=== PATIENT | female | born 1980 | race Asian ===

== ENCOUNTER 2022-03-21 20:38 | Emergency (ER) | payer OTHER, MEDICAID, SELFPAY ==
[2022-03-21 20:59] VITALS: BP 144/91; PULSE 94; RESP 18; TEMP 36.1; O2SAT 97; BMI 19.8
== END 2022-03-21 22:01 | disposition left against medical advice (07) ==
PROVIDERS: Emergency Provider Emergency Medicine
CPT/HCPCS: 99281

== ENCOUNTER 2022-07-21 11:34 | Emergency (ER) | payer OTHER, MEDICAID, SELFPAY ==
[2022-07-21 11:37] VITALS: BP 96/59; PULSE 58; RESP 15; TEMP 36.6; O2SAT 100; BMI 19.3
--- NOTE | 2022-07-21 11:56 | PC.NURSE ---
Pt c/o fever x 3 days.
[2022-07-21 12:05] LABS: COVID19 -Nasal RAPID POSITIVE (Negative)
--- NOTE | 2022-07-21 12:41 | ED_ITS ---
HPI - Fever <JAYCOB Mckeon - Last Filed: 07/21/22 12:44> General Chief Complaint: Fever Stated Complaint: Fever 102, body aches, lethargic Time Seen by Provider: 07/21/22 11:56 Source: patient Mode of arrival: Wheelchair History of Present Illness HPI Narrative: This is a 41-year-old female presents emergency department complaining of fever for the last 2 days, body aches, congestion, sore throat with a mild cough. She states she took a COVID test yesterday and the day before and it was negative. She states her symptoms started 3 days ago and she feels unwell. She denies any nausea, vomiting, or diarrhea. She endorses having chills, denies any dysuria, flank pain, abdominal pain or chest pain. She denies any shortness of breath or wheezing, states she has a history of asthma but denies any need for her inhaler. She states that she has low energy but otherwise has been tolerating fluids and eating food. She states that she had a tooth pulled 2 weeks ago, was not sure if she was getting an infection or not but denies any significant or worsening dental pain. Related Data Previous Rx's Medication Instructions Recorded benzocaine 15 mg-menthol 3.6 mg 1 king mucous membrane Q2H PRN sore 07/21/22 lozenges (Cepacol Sore Throat throat #16 ea (benzocaine-menthol)) cetirizine 10 mg tablet 10 mg PO BEDTIME PRN congestion 07/21/22 #20 tabs Allergies Allergy/AdvReac Type Severity Reaction Status Date / Time No Known Drug Allergies Allergy Verified 07/21/22 11:39 Review of Systems <JAYCOB Mckeon - Last Filed: 07/21/22 12:44> Review of Systems Narrative: Review of systems is negative for acute abnormalities unless otherwise noted in HPI Patient History <JAYCOB Mckeon - Last Filed: 07/21/22 12:44> Social History Smoking Status: Never smoker Smoking Status: Never smoker alcohol intake frequency: holidays/special occasions only Substance Use Type: marijuana Exam <JAYCOB Mckeon - Last Filed: 07/21/22 12:44> Narrative Exam Narrative: Reviewed vitals signs and nursing notes. General: cooperative, in no acute distress, well groomed, appears uncomfortable but is nontoxic appearing HEENT: symmetrical facial expressions, moist mucous membranes Cardiovascular: regular rate and rhythm, no peripheral edema, warm extremities Respiratory: normal effort, able to speak in complete sentences, without wheezing, stridor, or abnormal breath sounds. No retractions or tachypnea. GI: abdomen soft, nontender to palpation, nondistended, without masses, rebound tenderness or exquisite tenderness with exam. MSK: moves all extremities, neurovascularly intact, no weakness, normal tone Skin: brisk capillary refill, without pallor or erythema Neuro: normal speech and cognition, A&O x3, ambulatory, clear speech Psych: mental status is grossly normal, congruent mood, normal affect, pleasant and cooperative Initial Vital Signs Initial Vital Signs: Vital Signs Temperature 97.8 F 07/21/22 11:37 Pulse Rate 58 L 07/21/22 11:37 Respiratory Rate 15 07/21/22 11:37 Blood Pressure 96/59 L 07/21/22 11:37 Pulse Oximetry 100 07/21/22 11:37 Oxygen Delivery Method 07/21/22 11:37 <Brandon Rolon MD - Last Filed: 07/21/22 18:26> Initial Vital Signs Initial Vital Signs: Vital Signs Temperature 97.8 F 07/21/22 11:37 Pulse Rate 58 L 07/21/22 11:37 Respiratory Rate 15 07/21/22 11:37 Blood Pressure 96/59 L 07/21/22 11:37 Pulse Oximetry 100 07/21/22 11:37 Oxygen Delivery Method 07/21/22 11:37 Course <JAYCOB Mckeon - Last Filed: 07/21/22 12:44> Orders Ordered: ED Orders 07/21/22 11:44 COVID19 -Nasal RAPID/Pre-Proc Stat Discontinued Medications Acetaminophen (Acetaminophen 325 Mg Tablet) 600 mg PO NOW ONE Stop: 07/21/22 12:37 Last Admin: 07/21/22 12:46 Dose: 600 mg Documented By: EVELIO Ketorolac Tromethamine (Ketorolac 10 Mg Tablet) 10 mg PO NOW ONE Stop: 07/21/22 12:37 Last Admin: 07/21/22 12:46 Dose: 10 mg Documented By: EVELIO Vital Signs Vital signs: Vital Signs - 8 hr 07/21/22 11:37 07/21/22 12:48 07/21/22 12:51 Temperature 97.8 F 98.0 F Pulse Rate 58 L 64 65 Respiratory Rate 15 16 18 Blood Pressure 96/59 L 95/55 L 100/57 L Pulse Oximetry 100 99 97 Oxygen Delivery Method Room Air Room Air Room Air <Brandon Rolon MD - Last Filed: 07/21/22 18:26> Orders Ordered: ED Orders 07/21/22 11:44 COVID19 -Nasal RAPID/Pre-Proc Stat Discontinued Medications Acetaminophen (Acetaminophen 325 Mg Tablet) 600 mg PO NOW ONE Stop: 07/21/22 12:37 Last Admin: 07/21/22 12:46 Dose: 600 mg Documented By: EVELIO Ketorolac Tromethamine (Ketorolac 10 Mg Tablet) 10 mg PO NOW ONE Stop: 07/21/22 12:37 Last Admin: 07/21/22 12:46 Dose: 10 mg Documented By: EVELIO Vital Signs Vital signs: Vital Signs - 8 hr 07/21/22 11:37 07/21/22 12:48 07/21/22 12:51 Temperature 97.8 F 98.0 F Pulse Rate 58 L 64 65 Respiratory Rate 15 16 18 Blood Pressure 96/59 L 95/55 L 100/57 L Pulse Oximetry 100 99 97 Oxygen Delivery Method Room Air Room Air Room Air MDM - Fever <JAYCOB Mckeon - Last Filed: 07/21/22 12:44> Lab Data Labs: Lab Results 07/21/22 Range/Units 11:44 SARS-CoV-2 (PCR) Positive H (Negative) MDM Narrative Medical decision making narrative: COVID (+) on day 3 of symptoms without hypoxia, respiratory distress, dehydration, or focal exam to suggest secondary bacterial infection. Discussed CDC guidelines for quarantine, mask wearing, physical distancing, and infection prevention measures such as frequent handwashing. Discussed supportive treatments: Tylenol/Motrin as needed for pain/fever. OTC decongestant medications and/or antihistamines for symptomatic relief. Maintain adequate fluid intake. Follow-up with PCP as directed. Return to clinic/ER instructions discussed for new, not improving, or worsening symptoms. All questions answered. <Brandon Rolon MD - Last Filed: 07/21/22 18:26> Lab Data Labs: Lab Results 07/21/22 Range/Units 11:44 SARS-CoV-2 (PCR) Positive H (Negative) Discharge Plan Departure Patient Disposition: Home Clinical Impression: COVID-19 Instructions: DI for Fever (Symptom) -- Adult, COVID-19 Activity Restrictions/Additional Instructions: *You have been diagnosed with COVID-19. Today is day 3 of your 5 quarantine or until your fever is gone per CDC recommendations. Please stay hydrated, use ibuprofen 600 mg every 6 hours with food and water or and/or Tylenol 650 mg every 6 hours for pain and fever. Please take Zyrtec each night to help with any congestion, you can use throat lozenges for sore throat and use Mucinex which is available [id number] for a productive cough. I hope you start feeling better soon, focus on hydration and keeping your fever down. *What to do: *Please continue to take your regular medications as directed. [x ] New medication prescriptions sent to your pharmacy: [[facility] ] [ ] New medication written as a paper prescription [ ] No new medications given *Please follow up with your primary care provider in 2-3 days, call for an appointment. Let them know you were seen in the Emergency Department and that we asked that you be seen for follow-up. We will electronically transmit a record of today's note if your PCP is in our system *If you do not have a primary care provider please contact [phone] to establish care with one of the [facility] primary care providers. *Return to Emergency Department if you should have any new, worsening, or concerning symptoms, such as [fever greater than 101F, chills, worsening pain, persistent vomiting or other bothersome symptoms]. Prescriptions: New Cepacol Sore Throat (romero-men) 15-3.6 mg lozenge 1 king mucous membrane Q2H PRN (Reason: sore throat) Qty: 16 0RF cetirizine 10 mg tablet 10 mg PO BEDTIME PRN (Reason: congestion) Qty: 20 0RF Visit Report Forms: Patient Portal/API <Brandon Rolon MD - Last Filed: 07/21/22 18:26> Cosign ED Attending Cosignature Attestation: I was immediately available in the department for consultation. ?This documentation has been reviewed and I agree with assessment and plan. Supervised by Brandon Rolon MD
[2022-07-21] MEDS: ACETAMINOPHEN 325 MG TABLET 600 MG PO (12:46)
[2022-07-21] MEDS: KETOROLAC 10 MG TABLET PO (12:46)
[2022-07-21 12:48] VITALS: BP 95/55; PULSE 64; RESP 16; O2SAT 99
[2022-07-21 12:51] VITALS: BP 100/57; PULSE 65; RESP 18; TEMP 36.7; O2SAT 97
== END 2022-07-21 12:52 | disposition home or self-care (01) ==
PROVIDERS: Emergency Medicine; Emergency Provider Nurse Practitioner Critical Care Medicine
DX: U07.1 COVID-19 (principal)
CPT/HCPCS: 87635; 99283; C9803

== ENCOUNTER → 2023-03-06 10:30 | Outpatient (CLI) | payer OTHER, MEDICAID, SELFPAY ==
--- NOTE | 2023-03-06 10:32 | DI.RAD.S_ITS ---
PROCEDURE: XR FINGER RT MIN 2V INDICATIONS: finger injury TECHNIQUE: AP hand, 2 views of the 4th finger(s) acquired. COMPARISON: None. FINDINGS: Bones: No fractures or dislocations. No suspicious bony lesions. Soft tissues: No suspicious soft tissue calcifications. IMPRESSION: No visualized acute fracture or dislocation. However, if clinical concern and/or pain persist, short interval imaging followup in 7-10 days is recommended, as occult injury cannot be definitively excluded. Dictated by: Carey Bird M.D. on 03/06/2023 at 16:02 Approved by: Carey Bird M.D. on 03/06/2023 at 16:03
== END ==
PROVIDERS: Referring Provider Nurse Practitioner Family; Visit Provider Nurse Practitioner Family
DX: S60.041A Contusion of right ring finger without damage to nail, initial encounter (principal); X58.XXXA Exposure to other specified factors, initial encounter
CPT/HCPCS: 73140

== ENCOUNTER 2024-01-13 01:48 | Emergency (ER) | payer SELFPAY ==
[2024-01-13 02:00] VITALS: BP 141/86; PULSE 94; RESP 17; TEMP 36.8; O2SAT 98; BMI 19.4
--- NOTE | 2024-01-13 02:05 | ED_ITS ---
HPI - Allergic Reaction General Chief complaint: Allergic Reaction Stated complaint: hives/swollen lips reaction? x2 days Time Seen by Provider: 01/13/24 01:57 Source: patient, RN notes reviewed and old records reviewed Mode of arrival: Ambulatory Limitations: no limitations History of Present Illness HPI narrative: 43-year-old female who presents with complaint of 2 days of rash that started on her forehead that has proceeded to move across her entire body and now developed swelling of her upper lip. Patient states she has not had any similar symptoms in the past. If have not history of asthma. She has not really felt tight before. Does not feel like she is tight in her tongue or her airway. She states no nausea or vomiting, no diarrhea. She states rash has been present and worsening over the past several days. She did have some GI symptoms a week ago and was started on Pepcid. Patient states she does not have any known allergies no other new medications. She did take 50 mg Benadryl prior to arrival. Patient states she has not have any known food allergies or other known new exposures. No tobacco, no regular alcohol or recreational drugs. Patient presents today as the lip swelling was new. Related Data Previous Rx's Medication Instructions Recorded albuterol sulfate 90 mcg/actuation 2 puff inhalation Q4-6H PRN 10/19/23 aerosol inhaler shortness of breath or wheezing #8.5 grams ondansetron 4 mg disintegrating 4 mg PO Q8H PRN nausea and 01/04/24 tablet vomiting #10 tabs epinephrine 0.3 mg/0.3 mL 0.3 mg (0.3 mL) IM Q5-15M PRN 01/13/24 injection, auto-injector (EpiPen) anaphylaxis #2 ea prednisone 20 mg tablet 40 mg (2 x 20 mg) PO DAILY 5 days 01/13/24 #10 tabs Allergies Allergy/AdvReac Type Severity Reaction Status Date / Time No Known Drug Allergies Allergy Verified 01/04/24 17:09 Review of Systems Review of Systems ROS Unobtainable: All systems reviewed & are unremarkable except as noted in HPI and below Patient History Medical History Chicken pox (~1979) Painful menstrual periods Irregular menstrual cycle Heavy menstrual period Asthma ADHD (~1983) Surgical History History of eye surgery Social History marital status: number of children: 0 lives independently: Yes occupational status: unemployed other: grew up in [place], family still here. Smoking Status: Never smoker Smoking Status: Never smoker alcohol intake frequency: holidays/special occasions only Substance Use Type: marijuana Exam Narrative Exam Narrative: GEN: well nourished, well appearing female, alert and oriented x 3, patient appears to be in mild distress. HEENT: Atraumatic, pupils are equal round reactive to light, extraocular movements are intact, nares are clear, there is no conjunctival pallor. Throat is clear without any exudates, erythema, tonsillar enlargement or uvular deviation, patient has swelling of upper lip, no tongue or inner oropharyngeal involvement appreciated, HEART: Regular rate and rhythm without murmur, clicks, rubs. Pulses are equal in upper and lower extremities LUNGS:Lungs clear to auscultation, no wheezes, rales, crackles, chest moves symmetrically ABD:bowel sounds normal, soft, non-tender, no guarding, rebound, rigidity, no masses noted, no hepatosplenomegaly :No CVA tenderness MSCL: Non-tender, no muscle atrophy, muscles strength 5/5 upper and lower extremities, full range of motion, normal gait NEURO:CN 2-12 intact, sensation normal SKIN: Patient has erythematous raised wheals in various sizes from head to toe, no obvious mucosal involvement no blisters. Initial Vital Signs Initial Vital Signs: Vital Signs Temperature 98.2 F 01/13/24 02:00 Pulse Rate 94 H 01/13/24 02:00 Respiratory Rate 17 01/13/24 02:00 Blood Pressure 141/86 H 01/13/24 02:00 Pulse Oximetry 98 01/13/24 02:00 Oxygen Delivery Method Room Air 01/13/24 02:00 Course Orders Ordered: Famotidine (Famotidine 20 Mg/2 Ml Vial) 20 mg IV NOW GLENN Last Admin: 01/13/24 02:09 Dose: 20 mg Documented By: ZAY Discontinued Medications Epinephrine HCl (Epinephrine 1 Mg/Ml) 0.3 mg IM NOW ONE Stop: 01/13/24 02:05 Last Admin: 01/13/24 02:09 Dose: 0.3 mg Documented By: ZAY Sodium Chloride (Normal Saline 0.9%) 1,000 mls @ 1,000 mls/hr IV BOLUS ONE Stop: 01/13/24 03:03 Last Infusion: 01/13/24 03:29 Dose: Infused Documented By: Admin: 01/13/24 02:09 Dose: 1,000 mls/hr Documented By: ZAY Methylprednisolone (Methylprednisolone 125 Mg/2 Ml Vial) 125 mg IV NOW ONE Stop: 01/13/24 02:05 Last Admin: 01/13/24 02:09 Dose: 125 mg Documented By: ZAY Vital Signs Vital signs: Vital Signs - 8 hr 01/13/24 02:00 01/13/24 02:08 01/13/24 02:30 Temperature 98.2 F Pulse Rate 94 H 87 90 Respiratory Rate 17 26 H Blood Pressure 141/86 H Pulse Oximetry 98 100 100 Oxygen Delivery Method Room Air 01/13/24 03:00 01/13/24 03:00 01/13/24 03:32 Temperature Pulse Rate 92 H 97 H Respiratory Rate 26 H 29 H Blood Pressure 138/86 Pulse Oximetry 100 Oxygen Delivery Method 01/13/24 03:34 01/13/24 03:34 Temperature Pulse Rate 93 H Respiratory Rate 22 Blood Pressure 136/86 Pulse Oximetry 97 Oxygen Delivery Method MDM - Allergic Reaction MDM Narrative Medical decision making narrative: 43-year-old female presents with sounds like an allergic reaction, patient has had about 2 days of worsening rash that looks like hives but new lip swelling of her upper lip. Patient received Pepcid, Solu-Medrol, no Benadryl she had 50 mg prior to arrival epinephrine as she would upper lip involvement. Recheck at 0250, upper lip swelling seems mildly improved. Rash is still present throughout. Patient states she does not feel like she has had any worsening. We will continue to monitor. If symptoms appears stable and not worsening for discharge home with steroids, antihistamines follow up with primary care. Will have patient stop recent new medication. Recheck 0330: Patient continues to feel improved. Plan to continue steroids, Benadryl PRN was given EpiPen but encouraged to follow up with primary care. We did discuss return precautions. Discharge Plan Departure Patient Disposition: Home Clinical Impression: Allergic reaction Instructions: DI for Adverse Drug Reaction -- Allergic Activity Restrictions/Additional Instructions: The exact source of your reaction is unclear but I would recommend stopping your new medication. Please call your physician to follow up for recheck. You may take steroids once daily until gone. Continue with Benadryl 1-2 tablets every 6 hours as needed for itching and symptoms. A prescription for EpiPen is included. Prescription sent to [facility]. Please return for new or worsening symptoms increasing swelling of her lip, tongue or airway, tightness in your airway or chest, difficulty with breathing, worsening rash, new blisters, peeling of your rash, fevers, vomiting, diarrhea or other new or concerning changes. Prescriptions: New epinephrine [EpiPen] 0.3 mg/0.3 mL auto-injector 0.3 mg IM Q5-15M PRN (Reason: anaphylaxis) Qty: 2 0RF Rx Instructions: do not exceed 3 doses per episode prednisone 20 mg tablet 40 mg PO DAILY 5 Days Qty: 10 0RF No Action albuterol sulfate 90 mcg/actuation HFA aerosol inhaler 2 puff inhalation Q4-6H PRN (Reason: shortness of breath or wheezing) Qty: 8.5 2RF ondansetron 4 mg tablet,disintegrating 4 mg PO Q8H PRN (Reason: nausea and vomiting) Qty: 10 0RF Rx Instructions: May place one tab under tongue every 8 hours as needed for nausea and vomiting. Referrals: Angella Yates MD [Primary Care Provider] - Stand Alone Forms: Patient Portal/API
[2024-01-13 02:08] VITALS: PULSE 87; O2SAT 100
[2024-01-13] MEDS: EPINEPHrine 1 MG/ML 0.3 MG IM (02:09)
[2024-01-13] MEDS: FAMOTIDINE 20 MG/2 ML VIAL IV (02:09)
[2024-01-13] MEDS: SODIUM CHLORIDE 0.9% 1,000 ML 1000 ML IV (02:09)
[2024-01-13] MEDS: methylPREDNISolone 125 MG/2 ML VIAL IV (02:09)
[2024-01-13 02:30] VITALS: PULSE 90; RESP 26; O2SAT 100
[2024-01-13 03:00] VITALS: BP 138/86; PULSE 92; RESP 26; O2SAT 100
[2024-01-13 03:32] VITALS: PULSE 97; RESP 29
[2024-01-13 03:34] VITALS: BP 136/86; PULSE 93; RESP 22; O2SAT 97
== END 2024-01-13 03:43 | disposition home or self-care (01) ==
PROVIDERS: Emergency Provider Emergency Medicine; PCP Family Medicine
DX: T78.40XA Allergy, unspecified, initial encounter (principal)
CPT/HCPCS: 36415; 96372; 96374; 96375; 99283; 99284; J0171; J2919